=== PATIENT | male | born 1975 | race Two or more races ===

== ENCOUNTER 2024-02-13 14:05 | Emergency (ER) | payer SELFPAY ==
[~2024-02-13] VITALS: Ht 172.7 cm; Wt 88.2 kg
--- NOTE | 2024-02-13 15:10 | ED.PDOC ---
Ramy. trauma (HPI) HPI Comments 48M who is latvian speaking, presents to the ER w/ no prior Hx associated to the c/c of right wrist pain. Pt reports that he fell from the stairs and has trauma on his right wrist. Pt notes that the incident was 1 hour ago. Pt does have a fracture on the right radialis after analyzing the x-ray. Social Hx of tobacco and rare alcohol use, but denies substance use. Family Hx of HTN. Denies chills, fever, N/V/D, SOB, CP or other associated symptoms, modifiers, or recent injuries at this time. Chief Complaint: Upper Extremity Time Seen by MD: 14:55 Reviewed notes: Nurses Notes, Medications, Allergies Allergies: Coded Allergies: NO KNOWN ALLERGIES (Unverified , 02/13/24) Home Meds Active Scripts Hydrocodone-Acetaminophen (Hydrocodone Bitartrate/AC 5-325 mg) 1 Tab Tab, 1 TAB PO Q8HP PRN for 5 Days, #15 TAB Prov:RASHAAD RUDD MD 02/13/24 Information Source: Patient Mode of Arrival: Ambulatory Severity: Moderate Timing: Minutes Duration: Since onset, Minutes Prehospital treatment: None Location: (R) Wrist Location of laceration: None Mechanism: Fall Associated signs and symtoms: None Past Medical History PAST MEDICAL HISTORY: Denies Surgical History: Denies all surgeries Family History Family History: Reviewed,noncontributory to illness, Unknown Social History Smoker: Cigarettes Alcohol: Rarely Drugs: Denies Drug Use Lives In: Home Constitutional: reports: others (Fall trauma); denies: chills, diaphoresis, fatigue, fever, malaise, sweats, weakness EENTM: denies: blurred vision, double vision, ear bleeding, ear discharge, ear drainage, ear pain, ear ringing, eye pain, eye redness, hearing loss, mouth pain, mouth swelling, nasal discharge, nose bleeding, nose congestion, nose pain, photophobia, tearing, throat pain, throat swelling, voice changes, others Respiratory: denies: cough, hemoptysis, orthopnea, SOB at rest, shortness of breath, SOB with excertion, stridor, wheezing, others Cardiovascular: denies: chest pain, dizzy spells, diaphoresis, Dyspnea on exertion, edema, irregular heart beat, left arm pain, lightheadedness, palpitations, PND, syncope, others Gastrointestinal: denies: abdomen distended, abdominal pain, blood streaked bowels, constipated, diarrhea, dysphagia, difficulty swallowing, hematemesis, melena, nausea, poor appetite, poor fluid intake, rectal bleeding, rectal pain, vomiting, others Genitourinary: denies: burning, dysuria, flank pain, frequency, hematuria, incontinence, penile discharge, penile sore, pain, testicle pain, testicle swelling, urgency, others Neurological: denies: dizziness, fainting, headache, left sided numbness, left sided weakness, numbness, paresthesia, pre-existing deficit, right sided numbness, right sided weakness, seizure, speech problems, tingling, tremors, weakness, others Musculoskeletal: denies: back pain, gout, joint pain, joint swelling, muscle pain, muscle stiffness, neck pain, others Integumetry: denies: bruises, change in color, change in hair/nails, dryness, laceration, lesions, lumps, rash, wounds, others Allergic/Immunocompromised: denies: Difficulty Healing, Frequent Infections, Hives, Itching, others Hematologic/Lymphatic: denies: anemia, blood clots, easy bleeding, easy bruising, swollen glands, others Endocrine: denies: excessive hunger, excessive sweating, excessive thirst, excessive urination, flushing, intolerance to cold, intolerance to heat, unexplained weight gain, unexplained weight loss, others Psychiatric: denies: anxiety, bipolar disorder, depression, hopeless, panic disorder, schizophrenia, sleepless, suicidal, others All Other Systems: Reviewed and Negative Physical Exam General Appearance: Moderate Distress HEENT: Normal ENT Inspection, Pharynx Normal, TMs Normal Neck: Full Range of Motion, Non-Tender, Normal, Normal Inspection Respiratory: Chest Non-Tender, Lungs Clear, No Accessory Muscle Use, No Resp iratory Distress, Normal Breath Sounds Cardiovascular: No Edema, No JVD, No Murmur, No Gallop, Normal Peripheral Pulses, Regular Rate/Rhythm Breast Exam: Deferred Gastrointestinal: No Organomegaly, Non Tender, No Pulsatile Mass, Normal Bowel Sounds, Soft Genitalia: Deferred Pelvic: Deferred Rectal: Deferred Extremities: No calf tenderness, Normal capillary refill, No pedal edema Musculoskeletal : Location: Right Extremity Location: Wrist Apperance: Swelling, Limited ROM, Tenderness: Moderate Neurologic: Alert, disk sharpener II-XII nml as Tested, No Motor Deficits, Normal Affect, Normal Mood, No Sensory Deficits Cerebellar Function: Normal Reflexes: Normal Skin: Dry, Normal Color, Warm Lymphatic: No Adenopathy Was a procedure done? Was a procedure done?: No Differential Diagnosis Multiple Trauma: Fractures, Abrasions, Contusion X-Ray, Labs, Meds, VS Vital Signs Date Time Temp Pulse Resp B/P (MAP) Pulse Ox O2 Delivery O2 Flow Rate FiO2 02/13/24 15:25 Room Air* 0 21 02/13/24 15:24 97.9 98 12 102/69 (80) 98 97.9 02/13/24 14:33 97.9 64 17 96/50 (65) 95 Current Medications Medications (Trade) Dose Ordered Sig/Tari Route Start Time Stop Time Status Last Admin Acetaminophen/ Hydrocodone Bitart (Nova 10/325MG Tab) 1 tab ONCE ONCE PO 02/13/24 15:00 02/13/24 15:02 DC 02/13/24 15:14 PATIENT: JENNY GOODEN ACCT: [id number] UNIT: [id number] : 1975 LOC: ER ROOM / BED: / AGE / SEX: 48 / M ADM STATUS: REG ER SERVICE [id number] ORDERING PHYSICIAN: PONCHO ARREOLA CHAIR MENDER PROCEDURE(s): RWRI - R WRIST 3+ VIEW XRAY REASON: fall ORDER NUMBER(s): [id number], ACCESSION NUMBER(s): [id number] CLINICAL INDICATION: fall TECHNIQUE: 3 radiographic views of the right wrist were obtained. Comparison: None FINDINGS/IMPRESSION: There is acute comminuted, mildly displaced fracture of the distal radius with intra-articular extension and associated soft tissue edema. At this time, the patient is being discharged after being placed in a sugar-tong splint. The patient was also placed in the sling The patient was given Nova for the pain The patient was told to follow up with the orthopedic surgeon The patient will return to the emergency department's condition worsens. Images Reviewed?: Images reviewed and evaluated by me Time of 1ST Reevaluation: 15:25 Reevaluation 1ST: Unchanged Time of 2ND Reevaluation: 15:47 Reevaluation 2ND: Improved Patient Education/Counseling: Diagnosis, Treatment, Prognosis, Need For Follow Up Family Education/Counseling: No Family Present Departure 1 Departure Time of Disposition: 15:47 Impression: Primary Impression: Right wrist fracture Qualified Codes: S62.101A - Fracture of unspecified carpal bone, right wrist, initial encounter for closed fracture Disposition: 01 HOME / SELF CARE / HOMELESS Condition: Fair e-Prescriptions Hydrocodone-Acetaminophen (Hydrocodone Bitartrate/AC 5-325 mg) 1 Tab Tab 1 TAB PO Q8HP PRN for 5 Days, #15 TAB Prov: RASHAAD RUDD MD 02/13/24 Discharged With: Self Critical Care Note Critical Care Time?: No Stability Stability form required: No Heart Score Heart Score: Heart Score Response (Comments) Value History N/A 0 EKG N/A 0 Age N/A 0 Risk Factors N/A 0 Troponin N/A 0 Total 0 I personally scribed for RASHAAD RUDD MD ([email or web address]) on 02/13/24 at 15:10. Electronically submitted by Rich Jacques ([email or web address]). I personally scribed for RASHAAD RUDD MD ([email or web address]) on 02/13/24 at 15:45. Electronically submitted by Rich Jacques ([email or web address]). RASHAAD RUDD MD Feb 13, 2024 15:10
[2024-02-13] MEDS: HYDROcodone-ACET 10/325MG TAB PO ONE (15:14)
--- NOTE | 2024-02-13 15:14 | DVH ---
CLINICAL INDICATION: fall TECHNIQUE: 3 radiographic views of the right wrist were obtained. Comparison: None FINDINGS/IMPRESSION: There is acute comminuted, mildly displaced fracture of the distal radius with intra-articular extens ion and associated soft tissue edema.
[2024-02-13 15:24] VITALS: BP 102/69; PULSE 98; RESP 12; TEMP 97.9; O2SAT 98
[2024-02-13] MEDS ORDERED: HYDR-4902 PO (15:46)
== END 2024-02-13 15:54 | disposition home or self-care (01) ==
LOC: ER 14:05
DX: S52.591A Other fractures of lower end of right radius, initial encounter for closed fracture (principal); F17.210 Nicotine dependence, cigarettes, uncomplicated; W10.8XXA Fall (on) (from) other stairs and steps, initial encounter; Y93.89 Activity, other specified; Y92.89 Other specified places as the place of occurrence of the external cause; Y99.8 Other external cause status
CPT/HCPCS: 29125; 73110; 99283